=== PATIENT | female | born 1975 | race Caucasian/White ===

== ENCOUNTER 2020-10-01 01:42 | Emergency (ER) | payer SELFPAY ==
[~2020-10-01] VITALS: Ht 149.9 cm; Wt 46.0 kg
[2020-10-01 01:52] VITALS: BP 119/85
[2020-10-01] MEDS ORDERED: BENZONATATE 100MG CAPSULE PO ONE (02:30)
[2020-10-01] MEDS ORDERED: ACETAMINOPHEN 500MG TABLET PO ONE (02:30)
== END 2020-10-01 02:53 | disposition home or self-care (01) ==
LOC: ER 01:42
DX: J42 Unspecified chronic bronchitis (principal); Z71.6 Tobacco abuse counseling; F17.200 Nicotine dependence, unspecified, uncomplicated
CPT/HCPCS: 99283